=== PATIENT | female | born 1970 | race African-American/Black ===

== ENCOUNTER 2018-01-01 23:17 | Emergency (ER) | payer SELFPAY ==
[2018-01-01] MEDS ORDERED: Lorazepam 2 MG/ML VIAL ONE (23:28)
[2018-01-01 23:47] LABS: Bilirubin Negative (Negative); Blood, Urine Trace (Negative); Clarity CLEAR (Clear); Glucose, Urine (Dipstick) Negative (Negative); Leukocyte Negative (Negative); Nitrite Negative (Negative); Protein, Urine (Dipstick) Negative (Neg-Trace); Specific Gravity, Urine 1.008 (1.002-1.036); Urobilinogen 0.2 mg/dL (0.2-1.0)
[2018-01-02 00:01] LABS: Amphetamine Not Detected (NotDetected); Barbiturates Screen Not Detected (NotDetected); Benzodiazepine Screen Not Detected (NotDetected); Cocaine Metabolite Screen Not Detected (NotDetected); Medtox Control Line Valid? VALID (VALID); Medtox Reader # READER 4; Methadone Not Detected (NotDetected); Methamphetamine Not Detected (NotDetected); Opiate Screen Not Detected (NotDetected); Oxycodone Screen Not Detected (NotDetected); Phencyclidine (PCP) Not Detected (NotDetected); THC/Cannabinoid Screen Not Detected (NotDetected); Tricyclic Screen Not Detected (NotDetected)
--- NOTE | 2018-01-02 00:08 | RAD ---
PORTABLE AP CHEST X-RAY 01/01/18 HISTORY: Altered mental status, chest pain and shortness of breath. FINDINGS: The cardiac silhouette is magnified by projection but does appear mildly enlarged. Pulmonary vasculat ure is within normal limits. The lungs are clear. Surgical clips overlie the right upper quadrant. Os seous are intact with mild right acromioclavicular joint osteoarthritis present. IMPRESSION: 1. No acute cardiopulmonary process. 2. Findings suggesting mild cardiomegaly. POS: YAMILE
[2018-01-02 00:19] LABS: Bacteria/HPF None Seen HPF (None Seen); Hyaline Casts/LPF NONE SEEN LPF (0-3 Hyaline); RBC/HPF None Seen HPF (0-3); Squamous Epithelial 0-3 HPF (0-3); WBC/HPF None Seen HPF (0-3)
[2018-01-02 00:21] LABS: BHCG - Serum Negative (NEGATIVE); Pregs Control Background? CLEAR/WHITE (CLR/WHITE); Pregs Control Bar Appear? YES (CONTROL BAR)
[2018-01-02 00:32] LABS: Hemoglobin 13.3 g/dL (12.0-16.0); Mean Corpuscular HGB CONC 34.7 g/dL (32.0-36.0); Mean Corpuscular Hemoglobin 31.3 pg (27.0-31.0); Mean Corpuscular Volume 90.2 fl (81.0-99.0); RBC Distribution Width 11.8 % (11.5-14.5); Red Blood Cell (RBC) Count 4.27 mill/uL (4.20-5.40); White Blood Cell (WBC) Count 8.4 thou/uL (4.8-10.8)
[2018-01-02 00:35] LABS: CKMB 1.5 ng/mL (0-6.6); Troponin I Less than 0.010 ng/mL (< 0.028)
[2018-01-02 00:48] LABS: Thyroid Stimulating Hormone Less than 0.0025 uIU/mL (0.35-4.94)
[2018-01-02 00:49] LABS: Eosinophils 2 % (0-10); Lymphocytes 49 % (21-51); MDiff Complete? YES; Mean Platelet Volume 9.8 fL (7.4-10.4); Monocytes 6 % (0-10); Neutrophil 43 % (42-75); PLT Morphology Comment Appears Adequate; Platelet Count 149 thou/uL (130-400); RBC Morphology Normal
[2018-01-02 00:57] LABS: ALT (SGPT) 20 U/L (8-55); AST (SGOT) 16 U/L (5-34); Albumin 3.5 g/dL (3.5-5.0); Alkaline Phosphatase 73 U/L (40-150); Anion Gap 14 mmol/L (10-20); BUN (Urea Nitrogen) 11 mg/dL (7.0-18.7); Bilirubin, Total 0.5 mg/dL (0.2-1.2); CK (CPK) 100 U/L (29-168); Calc. Creatinine Clearance 0 mL/min (70-130); Calcium 8.7 mg/dL (7.8-10.44); Carbon Dioxide 23 mmol/L (22-29); Chloride 111 mmol/L (98-107); Estimated GFR-MDRD Greater than 90; Globulin 2.4 g/dL (2.4-3.5); Glucose 93 mg/dL (70-105); Magnesium 1.8 mg/dL (1.6-2.6); Potassium 3.7 mmol/L (3.5-5.1); Protein, Total 5.9 g/dL (6.0-8.3); Sodium 144 mmol/L (136-145)
[2018-01-02 00:58] LABS: Acetaminophen Less than 6.0 mcg/mL (10.0-30.0); Alcohol 178 mg/dL (Less than 10); Salicylate Less than 8.0 mg/dL (15.0-30.0)
[2018-01-02 01:05] LABS: Prothrombin Time 13.2 SEC (12.0-14.7)
[2018-01-02 01:06] LABS: PTT 29.2 SEC (22.9-36.1)
[2018-01-02 03:33] LABS: Troponin I 0.015 ng/mL (< 0.028)
--- NOTE | 2018-01-02 07:15 | CT ---
NONCONTRAST CT HEAD: DATE: 01/01/18. HISTORY: Altered mental status in a patient with shortness of breath and chest pain. COMPARISON: None available. FINDINGS: Scattered areas of decreased attenuation are seen in the periventricular white matter which are nonsp ecific but probably reflective of mild chronic small-vessel ischemic changes. There is no evidence o f an acute cortical infarction, hemorrhage, mass effect, or midline shift. Cavum septum pellucidum e t vergae is present which is a normal variant. The ventricular system is otherwise normal in size, s hape, and position. Mucous retention cyst is seen in the left maxillary antrum. The remainder of the visualized paranasa l sinuses and mastoid air cells are clear. Calvarial structures are intact. IMPRESSION: 1. No acute intracranial abnormality is demonstrated. 2. Mild chronic small-vessel ischemic changes. POS: YAMILEH
== END 2018-01-02 05:35 | disposition home or self-care (01) ==
LOC: ERS 23:17 → EDBD 23:17 → ERS 01-02 05:35
DX: F10.129 Alcohol abuse with intoxication, unspecified (principal); R94.6 Abnormal results of thyroid function studies; F41.9 Anxiety disorder, unspecified; F17.210 Nicotine dependence, cigarettes, uncomplicated; Y90.6 Blood alcohol level of 120-199 mg/100 ml
CPT/HCPCS: 36415; 36416; 70450; 71045; 80053; 80306; 80307; 81003; 81015; 82553; 83735; 84439; 84443; 84484; 84703; 85025; 85610; 85730; 93005; 96361; 96374; 99406; J2060